=== PATIENT | female | born 1960 | race Caucasian/White ===

== ENCOUNTER → 2016-12-07 | Outpatient (CLI) | payer MEDICARE, BC ==
[~2016-12-07] MED LIST: AVONEX ADM30 MCG/KIT IM; AVONEX IM; BACLOFEN20 MG PO; BENICAR HCT 12.1 TAB PO; ENJUVIA0.625 MG PO; FENTANYL 50MCG TP; GABAPENTIN800 MG PO; IBU400 MG PO; IBUPROFEN400 MG PO; KEPPRA 500MG500 MG PO; LEXAPRO20 MG PO; LIORESAL 1010 MG/TAB PO; MORPHINE SULFAT15 M2; MULTIPLE VITAMI1 CAP PO; MVI PO; NEURONTIN300 MG/CAP PO; NORCO 325 MG-51 TAB PO; NORCO 325 MG-7.1 TAB PO; OSCAL 500 TAB500 MG PO; OSCAL 500MG/VI500 MG PO; PERCOCET 325 MG1 TA2 PO; PRAVACHOL 40MG40 MG PO; PRAVACHOL40 MG PO; PREVACHOL PO; PROTONIX 40MG T40 MG PO; PYRIDIUM 100MG100 MG PO; ROPINAROLE PO; SANCTURA XR60 M1 PO; SANCTURA XR60 MG PO; SUPER B COMPLEX1 TA2 PO; TOPAKAX PO; TOPAMAX100 MG PO; TOVIAZ8 MG PO; VITAMIN D PO; VITAMIN D1000 IU PO; ZOFRAN4 M1 PO; ZOLOFT 100MG100 MG PO; ZOLOFT PO
== END ==
LOC: COL.RAD 10:52
DX: N83.202 Unspecified ovarian cyst, left side (principal); R93.8 Abnormal findings on diagnostic imaging of other specified body structures

== ENCOUNTER 2017-05-23 15:01 | Inpatient (IN) | payer MEDICARE, BC ==
[~2017-05-23] VITALS: Ht 157.5 cm; Wt 65.5 kg
[2017-05-23 15:28] LABS: BASO % 0.5 % (0.0-2.0); EOS # 0.1 (0.0-0.7); EOS % 0.6 % (0-4.0); GRAN # 5.8 (1.4-6.5); GRAN % 74.6 % (42.2-75.2); HEMATOCRIT 42.9 % (37.0-47.0); HEMOGLOBIN 14.2 g/dl (12.5-16.0); LYMPH # 1.4 (1.2-3.4); LYMPH % 17.8 % (20.0-51.0); MEAN CELL VOLUME 98 fl (80.0-100.0); MEAN CORPUSCULAR HEMOGLOBIN 33 pg (27.0-31.0); MEAN CORPUSCULAR HGB CONC 33 g/dl (33.0-37.0); MEAN PLATELET VOLUME 10.8 fl (7.4-10.4); MONO # 0.5 (0.1-0.6); MONO % 6.2 % (1.7-9.3); PLATELET COUNT 222 K/mm3 (130-400); RED BLOOD COUNT 4.37 M/mm3 (4.10-5.30); REDCELL DISTRIBUTION WIDTH-CV 12.6 % (11.5-14.5)
[2017-05-23 15:42] LABS: ALANINE AMINOTRANSFERASE 38 U/L (9-52); ALKALINE PHOSPHATASE 63 U/L (50-136); ANION GAP 6 mmol/L (7-16); AST,SGOT 25 U/L (15-37); BILIRUBIN,TOTAL 0.4 mg/dL (0.0-1.0); BLOOD UREA NITROGEN 13 mg/dL (7-17); CALCIUM 9.6 mg/dL (8.4-10.2); CARBON DIOXIDE 31 mmol/L (22-30); CHLORIDE 99 mmol/L (98-107); GLUCOSE 135 mg/dL (74-106); POTASSIUM 4.5 mmol/L (3.4-5.0); SODIUM 136 mmol/L (137-145)
[2017-05-23 15:44] LABS: ALCOHOL(ethanol),MEDICAL < 10 mg/dL
[2017-05-23 18:18] LABS: COLLECTION METHOD CLEAN CATCH
[2017-05-23 18:24] LABS: PH 7 (5-8); SQUAMOUS EPITHELIAL 0-2 /hpf; URINE APPEARANCE Clear; URINE BACTERIA Rare /hpf; URINE BILIRUBIN Negative (NEGATIVE); URINE BLOOD Negative (NEGATIVE); URINE COLOR Yellow; URINE GLUCOSE Negative (NEGATIVE); URINE KETONE Negative (NEGATIVE); URINE LEUKOCYTE ESTERASE Negative (NEGATIVE); URINE NITRATE Negative (NEGATIVE); URINE PROTEIN(semi-quant) Negative (NEGATIVE); URINE RBC 0-2 /hpf; URINE UROBILINOGEN Negative (NEGATIVE)
[2017-05-23 18:37] LABS: TRICYCLIC ANTIDEPRESS URINE NEGATIVE
[2017-05-23 20:04] VITALS: BP 142/76; PULSE 109; TEMP 98.5
[2017-05-23] MEDS ORDERED: EVISTA 60MG60 MG/TAB PO (21:28)
[2017-05-23] MEDS ORDERED: ZESTRIL 20MG TA20 MG PO (21:30)
[2017-05-23] MEDS ORDERED: ZOLOFT 100MG100 MG PO (21:35)
[2017-05-23 23:23] VITALS: BP 129/73; PULSE 106; TEMP 98.2
[2017-05-24 05:27] VITALS: BP 131/70; PULSE 107; TEMP 99.6
[2017-05-24 07:26] LABS: BASO # 0.1 (0.0-0.2); BASO % 0.8 % (0.0-2.0); EOS % 0.1 % (0-4.0); GRAN # 5.6 (1.4-6.5); GRAN % 70.1 % (42.2-75.2); HEMATOCRIT 39.1 % (37.0-47.0); HEMOGLOBIN 12.9 g/dl (12.5-16.0); LYMPH # 1.6 (1.2-3.4); LYMPH % 20.3 % (20.0-51.0); MEAN CELL VOLUME 98 fl (80.0-100.0); MEAN CORPUSCULAR HEMOGLOBIN 32 pg (27.0-31.0); MEAN CORPUSCULAR HGB CONC 33 g/dl (33.0-37.0); MEAN PLATELET VOLUME 11.1 fl (7.4-10.4); MONO # 0.7 (0.1-0.6); MONO % 8.4 % (1.7-9.3); PLATELET COUNT 226 K/mm3 (130-400); REDCELL DISTRIBUTION WIDTH-CV 12.8 % (11.5-14.5)
[2017-05-24 07:43] LABS: CALCIUM 8.9 mg/dL (8.4-10.2); CREATININE, serum 0.63 mg/dL (0.52-1.25); POTASSIUM 4.1 mmol/L (3.4-5.0)
[2017-05-24 08:49] VITALS: BP 133/71; PULSE 102; TEMP 98.2
[2017-05-24 12:28] VITALS: BP 123/69; PULSE 100; TEMP 98.4
[2017-05-24] MEDS ORDERED: PRIL40 PO (15:12)
[2017-05-24] MEDS ORDERED: KEPPRA750 MG PO (15:14)
[2017-05-24 16:05] VITALS: BP 117/58; PULSE 93; TEMP 99.6
[2017-05-24 20:49] VITALS: BP 134/59; PULSE 110; TEMP 98.3
[2017-05-25 00:59] VITALS: BP 137/73; PULSE 85; TEMP 98.1
[2017-05-25 04:58] VITALS: BP 142/89; PULSE 74; TEMP 98.4
[2017-05-25 07:47] LABS: BASO % 0.6 % (0.0-2.0); EOS % 0.6 % (0-4.0); GRAN # 3.4 (1.4-6.5); GRAN % 62.4 % (42.2-75.2); LYMPH # 1.5 (1.2-3.4); LYMPH % 28.2 % (20.0-51.0); MEAN CELL VOLUME 97 fl (80.0-100.0); MEAN CORPUSCULAR HGB CONC 33 g/dl (33.0-37.0); MEAN PLATELET VOLUME 11.3 fl (7.4-10.4); MONO # 0.4 (0.1-0.6); PLATELET COUNT 207 K/mm3 (130-400); RED BLOOD COUNT 3.68 M/mm3 (4.10-5.30); REDCELL DISTRIBUTION WIDTH-CV 12.9 % (11.5-14.5)
[2017-05-25 07:53] LABS: CALCIUM 8.7 mg/dL (8.4-10.2); CREATININE, serum 0.55 mg/dL (0.52-1.25)
[2017-05-25 07:56] LABS: HEMATOCRIT 35.8 % (37.0-47.0); HEMOGLOBIN 11.8 g/dl (12.5-16.0); MEAN CORPUSCULAR HEMOGLOBIN 32 pg (27.0-31.0)
[2017-05-25] MEDS ORDERED: KEPPRA1000 MG PO (08:46)
[2017-05-25 08:51] VITALS: BP 132/77; PULSE 97; TEMP 99.2
== END 2017-05-25 11:46 | disposition home or self-care (01) | DRG 101 ==
LOC: COL.ER 15:01 → MEDICAL 18:16
PROVIDERS: Family Medicine; Nurse Practitioner; Physician Assistant
PROC: 0HQ0XZZ Repair Scalp Skin, External Approach (ICD-10-PCS; principal; 2017-05-23)
DX: R56.9 Unspecified convulsions (principal); G35 Multiple sclerosis; S01.01XA Laceration without foreign body of scalp, initial encounter; W18.30XA Fall on same level, unspecified, initial encounter
CPT/HCPCS: 99222-AI; 99239; J1953; J2060; J7030

== ENCOUNTER → 2017-12-05 | Outpatient (CLI) | payer MEDICARE, BC ==
[~2017-12-05] MED LIST changes: +EVISTA 60MG60 MG/TAB PO; +KEPPRA1000 MG PO; +KEPPRA750 MG PO; +PRIL40 PO; +ZESTRIL 20MG TA20 MG PO
== END ==
LOC: COL.RAD 07:51
DX: J98.6 Disorders of diaphragm (principal); R10.9 Unspecified abdominal pain
CPT/HCPCS: Q9967

== ENCOUNTER → 2017-12-30 | Outpatient (CLI) | payer MEDICARE, BC | LOC: COL.RAD 06:39 | DX: K30 Functional dyspepsia (principal); R63.0 Anorexia | CPT/HCPCS: A9541 ==

== ENCOUNTER 2019-08-21 11:05 | Emergency (ER) | payer MEDICARE, BC ==
[2005-03-21 09:37] VITALS: BP 134/71
[~2019-08-21] VITALS: Ht 162.6 cm; Wt 56.8 kg
[~2019-08-21 11:05] MED LIST changes: +ASPIRIN 81M81 MG/TA2 PO; +AVONEX PEN30 MCG/0.5 IM; +LOPRESSOR 225 MG/TAB PO; +LYRICA 75MG CAP75 MG; +TYLENOL 325MG325 MG PO; +VIMPAT100 MG PO
[2019-08-21 11:06] VITALS: TEMP 97.8
[2019-08-21 12:02] LABS: BASO # 0.1 (0.0-0.2); BASO % 0.6 % (0.0-2.0); EOS # 0.1 (0.0-0.7); EOS % 0.8 % (0-4.0); GRAN # 8.3 (1.4-6.5); GRAN % 79.8 % (42.2-75.2); HEMATOCRIT 40.6 % (37.0-47.0); HEMOGLOBIN 13.6 g/dl (12.5-16.0); LYMPH # 0.9 (1.2-3.4); MEAN CELL VOLUME 96 fl (80.0-100.0); MEAN CORPUSCULAR HEMOGLOBIN 32 pg (27.0-31.0); MEAN CORPUSCULAR HGB CONC 34 g/dl (33.0-37.0); MEAN PLATELET VOLUME 10.8 fl (7.4-10.4); MONO % 9.5 % (1.7-9.3); PLATELET COUNT 324 K/mm3 (130-400); RED BLOOD COUNT 4.25 M/mm3 (4.10-5.30); REDCELL DISTRIBUTION WIDTH-CV 13.2 % (11.5-14.5)
[2019-08-21 12:12] LABS: PROTHROMBIN TIME 11.3 SECONDS (9.7-12.8)
[2019-08-21 12:19] LABS: ALBUMIN 4.3 gm/dL (3.5-5.0); C-REACTIVE PROTEIN 1.3 mg/dL (0.0-0.9); CALCIUM 9.5 mg/dL (8.4-10.2); CREATININE, serum 0.44 (0.52-1.25); POTASSIUM 3.9 mmol/L (3.4-5.0); TOTAL PROTEIN 7.8 gm/dL (6.4-8.2)
[2019-08-21 12:29] LABS: TROPONIN-I 0.066 ng/mL (0.000-0.035)
[2019-08-21 12:34] LABS: COLLECTION METHOD CATHETER
[2019-08-21 12:44] LABS: MUCOUS Present /lpf; PH 6 (5-8); SQUAMOUS EPITHELIAL 0-2 /hpf; URINE APPEARANCE Clear; URINE BACTERIA None Seen /hpf; URINE BILIRUBIN Negative (NEGATIVE); URINE BLOOD Negative (NEGATIVE); URINE COLOR Yellow; URINE GLUCOSE Negative (NEGATIVE); URINE KETONE Negative (NEGATIVE); URINE LEUKOCYTE ESTERASE Negative (NEGATIVE); URINE NITRATE Negative (NEGATIVE); URINE PROTEIN(semi-quant) Negative (NEGATIVE); URINE RBC None Seen /hpf; URINE UROBILINOGEN Negative (NEGATIVE)
[2019-08-21 12:46] LABS: TSH w REFLEX 1.6 uIU/mL (0.465-4.680)
[2019-08-21 15:50] VITALS: BP 130/78; PULSE 87
--- NOTE | 2019-08-21 15:50 | NUR ---
PAU responded to a social media specialist consult for the patient due to ED physician concern for the patient to be able to manage at home. The patient was discharged from the hospital on 08/17 with [facility]. Edward from [facility] reports they had visited the patient approximately 4 times since discharge. PAU met with the patient and the patient's brother Clarence (via telephone) to discuss placement. Clarence states he would like the patient to go to [facility] for post acute rehab due to that the patient receives [facility] from there. The patient was in agreeance. PAU discussed [employer]'s list of post acute rehab facilities in [place] and asked for a second choice. The second choice was [facility]. PAU faxed referrals. [facility] reports they can take the patient and provide transportation. The team, patient and the patient's brother were in agreeance. PAU contacted the Edward from [facility] to inform him. PAU collaborated the above information with the patient's nurse.
== END 2019-08-21 15:50 | disposition home or self-care (01) ==
LOC: COL.ER 11:05
PROVIDERS: Emergency Medicine
DX: G40.909 Epilepsy, unspecified, not intractable, without status epilepticus (principal); G35 Multiple sclerosis; I10 Essential (primary) hypertension; Z79.82 Long term (current) use of aspirin
CPT/HCPCS: J1953